=== PATIENT | female | born 1955 | race Caucasian/White ===

== ENCOUNTER 2020-09-27 21:02 | Emergency (ER) | payer BC, SELFPAY ==
[2020-09-27 21:03] VITALS: BP 151/65; PULSE 76; RESP 18; TEMP 36.9; O2SAT 95; BMI 57.6
--- NOTE | 2020-09-27 21:20 | RAD_ITS ---
STUDY: X-RAY - LEFT FEMUR REASON FOR STUDY: Female, 64 years old. Fall today. Left femur pain. Best images possible due to pt size. TECHNIQUE: 2 view(s) of the femur. COMPARISON: None. FINDINGS: Comminuted foreshortened fracture distal femur with 100% posterior displacement and 50% medial displacement. Normal visualized soft tissue structure. RAD/Femur Min 2 Views IMPRESSION: Displaced distal femur fracture Electronically Signed: Michael Vargas MD at 21:52 EST , Service support ,
--- NOTE | 2020-09-27 21:22 | ED.DCSUM_ITS ---
- ER Visit Summary Date of Service: 09/27/20 Chief Complaint:-Fell at home complaining of left lower thigh pain History of Present Illness: The patient is a 64 F history of diabetes, hypertension and uterine cancer with prior hysterectomy. Patient states she was at home tripped and fell in the doorway injuring her left thigh just above the knee. Squad was called. She was brought in in an air splint and given morphine in route. Says her pain currently is about 2-3 out of 10. She denies hitting her head or having any LOC. She denies any other complaints. She is never had surgery to this leg. Physical Examination: Older female vital signs stable afebrile. HEENT exam atraumatic. Nontender. Pupils round reactive light. Scalp nontender. C-spine nontender. Trachea midline. Lungs clear to auscultation bilaterally. Heart regular rhythm rate about 75. Chest wall nontender. Abdomen soft nontender morbidly obese. Pelvic girdle intact. Hips nontender. Both upper extremities are nontender with 5-5 digital experience manager strength and normal range of motion. Right lower extremity is nontender. Normal range of motion normal dorsi plantarflexion. Right hip, knee and ankle are nontender. Left hip is nontender. Left foot and ankle are nontender. Dorsi plantarflexion intact left foot. Normal sensation. Normal pulse. Her left femur just above the knee is tender in that area is swollen. Neurologically she is awake and alert. Moving the 3 uninjured extremities. And has dorsi and plantar flexion in the left lower extremity. Test Results: Left femur x-ray 2 views interpreted by myself shows shows a displaced distal femur fracture just above the knee joint. 100% displaced. Also read by the radiologist and agrees. CBC showed a white count of 9 and hemoglobin of 11. Chemistries were unremarkable with normal creatinine and gap. Her blood sugar was 132. Emergency Department Course and Treatment: Patient with a fall concern for a femur fracture. X-rays are being obtained. She was treated with morphine by the paramedics. Treatment Plan: Patient's been treated with additional morphine and Zofran. Currently she is doing well at 10:07 PM. I spoke to the orthopedic physician on-call yessenia he felt that was in the patient's best interest to have this treated at a larger facility. I spoke to [facility] and they have accepted her to be transferred to the emergency department. Disposition: Transfer to [facility]. Impression: Acute fall Acute left distal, comminuted and displaced femur fracture History of diabetes and hypertension This note was generated with [employer] dictation software. It may contain incorrect words, spelling, and punctuation that were not noted in review of the chart prior to signing ED Disposition - Plan for ED Patient: Referrals: Terrence Núñez MD [Primary Care Provider] -
[2020-09-27] MEDS: Ondansetron 4 MG/2 ML Vial IV (21:45)
[2020-09-27] MEDS: morphine 8 MG/ML Syringe IV (21:45)
[2020-09-27 21:54] LABS: Hematocrit 38.5 % (37-47); Hemoglobin 11.2 g/dL (12.0-15.0); Mean Corp Hgb Conc 29.1 g/dL (32-36); Mean Corpuscular Hgb 24.2 pg (27.0-32.0); Mean Corpuscular Volume 83.2 fL (81-99); Mean Platelet Vol. 11.3 fl (6.2-12.0); Platelet Count 307 K/mm3 (150-450); RBC Distribution Width CV 14.3 % (11.6-14.6); Red Blood Count 4.63 M/mm3 (4.2-5.4); White Blood Count 9.4 K/mm3 (4.4-11.0)
[2020-09-27 22:03] VITALS: BP 140/102; PULSE 64; RESP 16; O2SAT 96
[2020-09-27 22:03] LABS: Anion Gap 7 (5-15); BUN 16 mg/dL (7-18); BUN/Creat Ratio 19.2 RATIO (10-20); Calcium,Total 8.8 mg/dL (8.5-10.1); Chloride 106 mmol/L (98-107); Creatinine, Serum 0.83 mg/dL (0.55-1.02); EST Glomerular Filtration Rate 73 mL/min (>60); Est Glom Filt Rate - Afr Amer 89 mL/min (>60); Estimated Creatinine Clearance 55.58 ml/min; Glucose 132 mg/dL (74-106); Sodium Level 141 mmol/L (136-145)
--- NOTE | 2020-09-27 22:31 | ED.RN ---
[facility]
--- NOTE | 2020-09-27 22:55 | ED.RN ---
pt at bedside. denies any complaints
[2020-09-27 23:00] VITALS: O2SAT 80
[2020-09-27 23:03] VITALS: O2SAT 99
[2020-09-27 23:20] VITALS: BP 153/77; PULSE 73; RESP 18; O2SAT 98
[2020-09-27] MEDS: Morphine 4 MG/ML Syringe IV (23:56)
[2020-09-28 00:04] VITALS: BP 144/73; PULSE 71; RESP 18; O2SAT 99
== END 2020-09-28 00:06 | disposition short-term general hospital (02) ==
PROVIDERS: Emergency Provider Emergency Medicine; PCP Family Medicine
DX: S72.402A Unspecified fracture of lower end of left femur, initial encounter for closed fracture (principal); E11.9 Type 2 diabetes mellitus without complications; I10 Essential (primary) hypertension; Z79.84 Long term (current) use of oral hypoglycemic drugs; Z79.899 Other long term (current) drug therapy; W01.0XXA Fall on same level from slipping, tripping and stumbling without subsequent striking against object, initial encounter; Y93.01 Activity, walking, marching and hiking; Y92.008 Other place in unspecified non-institutional (private) residence as the place of occurrence of the external cause; Y99.8 Other external cause status
CPT/HCPCS: 51702; 73552; 80048; 85027; 96374; 96375; 96376; 99285; A4216; J2405

== ENCOUNTER 2021-05-28 07:00 | Outpatient (RCR) | payer BC, SELFPAY ==
--- NOTE | 2021-02-15 08:57 | HP.PTEVAL_ITS ---
Patient's Visit Information GAYLE APPLE is a 65 year old F referred to Physical Therapy by KAHLIL SORTO with a diagnosis of L femur fracture. Date of Evaluation: 02/15/21 Physical Therapist: Juan Chu DPT, OCS, CSCS - Visit Plan Frequency: 3x /Week Duration: 4-6 Weeks Plan: 3x/week for 4-6 week for. 1. patella mobs and AAROM PROm to L knee flexion,. 2. quad strength L and general strength LE. 3. gait training with decreasing AD as safety allows.(WBAT) - Subjective Sep 27 fell tripping on threshold of doorway and landed on L knee and broke femur 2 inches above knee. Transported to [facility] and surgery to put in plate and 10 screws. To [facility] adn was there for 12 days. home and did home therapy. Was [facility] for a while til November and then WBAT. Uses wh walker to get around. Tried cane at home. No AD needed Prior to this. Pain in knee is most of time across L knee and laterally. Worse wehn it rains or weather changes. Pain ranges from 1 to 4/10. Sleep is OK but it can wake her up at night at times. Doing exercises at home including walking with cane, and sink exercises of toe/heel raises, squats, leg marching, knee flexion stretche, kick behind. Lives with who is home much of day. Works at night. Dresses, bathes and bathroom I now. Has step in tub to shower chair. 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 Is full go for 40 hrs per week. Hobbies include: wanting to walk without AD. Likes to go and visit places/hike and is not able to get out much right now on feet. Likes to play with grandkids age 8-26. - Pain L knee Pain Intensity (Out of 10): 1 Pain Intensity Range: 1, 6 - Objective Walks with wh walker Mod I. Trasnfers I bed and chair. Steps with R only and one rail and one cane ascending adn two rails descending. R knee aROM 0-110 with 0 ext lag SLR. L knee 0-70 AROM with 18 degree ext lag with SLR. HS flex is good. Hip and ankle AROM WFL and strength hip 3+ and ankle 4-. knee strength ext L 3, flexion 4-, R knee 4 flexiona dn ext. patella stiff on L in cleopatra direction. reflexes 1/3 patella and achilles B. Sensation LE WNL to gross lgiht touch. Walks with cane CGA with poor confidence in L LE 300 feet today, walks without AD 50 feet slowly and L hesitation in WB and CGA. - Balance Scores Functional Gait Assessment Score: 15 % Disability: 50.0000 - Goals Goal 1:: 0-110 aROM L knee to help facilitate steps Goal Time Frame: 4-6 Weeks Goal 2:: FGA Goal Time Frame: 4-6 Weeks Goal 3:: SLR without ext lag L to show improved strength Goal Time Frame: 4-6 Weeks Goal 4:: Ambulate community without necessitating AD Goal Time Frame: 4-6 Weeks Goal 5:: Up and down steps reciprocally with one rail Goal Time Frame: 4-6 Weeks - Rehabilitation Potential Physical Therapy Diagnosis: L femur fracture and surgery adn resulting mobility deficits. Rehabilitation Potential: Fair - Anticipated Interventions Patient/Client Instruction: Educate patient on: Condition For the Purpose of:: To decrease pain, To increase ROM, To improve muscle performance and motor function, To increase tolerance to activity/condition/position, To improve gait and locomotor functions Therapeutic Exercise to Include: Strength training, Balance training, Gait and locomotor training, Neuromotor development, Passive ROM, Active ROM For the Purpose of:: To decrease pain, To increase ROM, To improve muscle performance and motor function, To increase tolerance to activity/condition/position, To improve gait and locomotor functions, To improve health of tissue Functional Training to Include: ADL Training, Gait training For the Purpose of:: To improve gait and locomotor functions Manual Therapy Techniques to Include: Mobilization, Soft tissue mobilization For the Purpose of:: To increase ROM, To improve nutrient delivery to tissue Cryotherapy (ice pack, ice massage): Yes For the Purpose of:: To decrease pain, To decrease swelling/inflammation Thank you for the opportunity to evaluate your patient. For Medicare and Medicare HMO plans, please review the plan of care and approve it. It will need to be FAXED BACK to us at [phone] for Medicare purposes. For Medicare only, by signing this I certify the plan of care. Please let me know if there are questions or concerns regarding this plan of care. Physician Signature: Date:
--- NOTE | 2021-03-12 08:03 | HP.PTREVAL_ITS ---
KAHLIL SORTO, It has been my pleasure to treat GAYLE APPLE over the last 11 visits for L femur fracture. Please see the progress note below for an update on the physical therapy plan of care! Subjective: Just using cane to get around instead of walker for most of day. Pain is mostly 2/10. Morning is stiff, later in day is sore. Sleep is much better than it was. ROM better but still needs improvement and wants to walk normally without aD. Objective/Function: +9 LEFS from day one. 10 degree lag with SLR(8 degree improvement). 0-78 (8 degree improvement)degrees AROM today, coming along slower than id hoped. Needs VC to put herself in the discomfort it will take to improve this. Hard for her to relax with PROM. Walks with cane R UE slow but mod I, without cane has diminished confidence adn knee gives out one time caught by patient but barely in the shape needed to recover from these types of incidences. steps are reciprocal with two railings required and painful with L knee flexion up and down. Overall SLOW improvement but going the right way. Appropriate to cotninue 3x/week for below POC with fair prognosis. Plan Plan: 3x/week for 3-4 weeks for ... 1. STM, rollout to quads to prepare for ROM. PROM knee flexion. L knee strength. Gait training with decreasing AD> Goals Goal 1:: 0-110 aROM L knee to help facilitate steps Goal Time Frame: 4-6 Weeks Goal Progress: slow progress Goal 2:: FGA Goal Time Frame: 4-6 Weeks Goal Progress: Progressing Goal 3:: SLR without ext lag L to show improved strength Goal Time Frame: 4-6 Weeks Goal Progress: Progressing Goal 4:: Ambulate community without necessitating AD Goal Time Frame: 4-6 Weeks Goal Progress: canenow Goal 5:: Up and down steps reciprocally with one rail Goal Time Frame: 4-6 Weeks Goal Progress: needs two rail Anticipated Interventions Patient/Client Instruction: Educate patient on: Condition For the Purpose of:: To decrease pain, To increase ROM, To improve muscle performance and motor function, To increase tolerance to activity/conditi on/position, To improve gait and locomotor functions Therapeutic Exercise to Include: Strength training, Balance training, Gait and locomotor training, Neuromotor development, Passive ROM, Active ROM For the Purpose of:: To decrease pain, To increase ROM, To improve muscle performance and motor function, To increase tolerance to activity/condition/ position, To improve gait and locomotor functions, To improve health of tissue Functional Training to Include: ADL Training, Gait training For the Purpose of:: To improve gait and locomotor functions Manual Therapy Techniques to Include: Mobilization, Soft tissue mobilization For the Purpose of:: To increase ROM, To improve nutrient delivery to tissue Cryotherapy (ice pack, ice massage): Yes For the Purpose of:: To decrease pain, To decrease swelling/inflammation Please do not hesitate to contact me at [phone] by phone or if you have questions or concerns regarding this new plan of care! Sincerely, Juan Chu, LESLIET, OCS, CSCS
--- NOTE | 2021-04-08 17:57 | HP.PTREVAL ---
KAHLIL SORTO, It has been my pleasure to treat GAYLE APPLE over the last 14 visits for L femur fracture. Please see the progress note below for an update on the physical therapy plan of care! Subjective: I hope we are getting better. Feels tight today above knee laterally. No pain at rest. Uncomfortable with ambuation at times but needs cane due to unsteadiness still. No falls lately. Sleep is OK most of time but achiness keeps her up now and then. Stillw ants to walk without cane and be able to move freely. Is cooking. Can sweep with broom for steadiness. bathroom I. Not using shower chair anymore. Is working adn gets painful sitting too long as the knee will tighten up. To doctor in April. Steps at home are challenging down especially to get out of house. Pt was on vacation for a week a while back. Objective/Function: AROM 0-83 , has a 1 degree ext lag L with SLR. These are improved but arduously slow with flexion ROM. Walking is improved with cane but still short step length and slow. Without cane can ambulate but very slow and short L step length. Steps require puling with both UE and discomfort L descending due to lack of ROM. FGA is +2 from last visit. LEFS is +9 from last visit. Overall fair progress with function, slow progress with ROM and strength Plan Plan: 4 visits approved is not enough to show significant progress and insurance should consider this with next approval. Would like to see her. 3x/week for 4 weeks for... 1. rollout and stretch knee flexion adn patellar mobs. 2. strengthen functionally L LE. 3. Gait training without AD. ice as needed. Goals appropriate and fair prognosis Goals Goal 1:: 0-110 aROM L knee to help facilitate steps Goal Time Frame: 4-6 Weeks Goal Progress: SLOW, approp. Goal 2:: FGA Goal Time Frame: 4-6 Weeks Goal Progress: SLOW, approp Goal 3:: SLR without ext lag L to show improved strength Goal Time Frame: 4-6 Weeks Goal Progress: 1 degree, approp. Goal 4:: Ambulate community without necessitating AD Goal Time Frame: 4-6 Weeks Goal Progress: still requires cane,appro Goal 5:: Up and down steps reciprocally with one rail Goal Time Frame: 4-6 Weeks Goal Progress: needs two rail,a pprop Anticipated Interventions Patient/Client Instruction: Educate patient on: Condition For the Purpose of:: To decrease pain, To increase ROM, To improve muscle performance and motor function, To increase tolerance to activity/condition/position, To improve gait and locomotor functions Therapeutic Exercise to Include: Strength training, Balance training, Gait and locomotor training, Neuromotor development, Passive ROM, Active ROM For the Purpose of:: To decrease pain, To increase ROM, To improve muscle performance and motor function, To increase tolerance to activity/condition/position, To improve gait and locomotor functions, To improve health of tissue Functional Training to Include: ADL Training, Gait training For the Purpose of:: To improve gait and locomotor functions Manual Therapy Techniques to Include: Mobilization, Soft tissue mobilization For the Purpose of:: To increase ROM, To improve nutrient delivery to tissue Cryotherapy (ice pack, ice massage): Yes For the Purpose of:: To decrease pain, To decrease swelling/inflammation Please do not hesitate to contact me at [phone] by phone or if you have questions or concerns regarding this new plan of care! Sincerely, Juan Chu, DPT, OCS, CSCS
--- NOTE | 2021-04-19 12:19 | HP.PT.NRP ---
GAYLE APPLE was seen in my office for initial evaluation on 02/15/21. The following Plan of Care was established for this patient: Initial Frequency: 3x /Week Initial Duration: 4-6 Weeks Patient/Client Instruction: Educate patient on: Condition For the Purpose of:: To decrease pain, To increase ROM, To improve muscle performance and motor function, To increase tolerance to activity/condition/position, To improve gait and locomotor functions Therapeutic Exercise to Include: Strength training, Balance training, Gait and locomotor training, Neuromotor development, Passive ROM, Active ROM For the Purpose of:: To decrease pain, To increase ROM, To improve muscle performance and motor function, To increase tolerance to activity/condition/position, To improve gait and locomotor functions, To improve health of tissue Functional Training to Include: ADL Training, Gait training For the Purpose of:: To improve gait and locomotor functions Manual Therapy Techniques to Include: Mobilization, Soft tissue mobilization For the Purpose of:: To increase ROM, To improve nutrient delivery to tissue Cryotherapy (ice pack, ice massage): Yes For the Purpose of:: To decrease pain, To decrease swelling/inflammation This patient was last seen in our office 04/08/21. Pertinent comments regarding their Physical therapy will appear below: Pt seen 14 visits and was 70% better. More visits were requested but denied by insurance , pt was notified and will be discontinued at this time. At this point I will be discontinuing this patient from physical therapy. I would be happy to see this patient again in the future if found appropriate by the physician. Thank you! Juan Chu, DPT, OCS, CSCS Balance/Gait/Functional tests - Balance/Special Test Scores Functional Gait Assessment Score: 17 % Disability: 43.3400
--- NOTE | 2021-05-28 07:49 | HP.PTREVAL ---
KAHLIL SORTO, It has been my pleasure to treat GAYLE APPLE over the last 25 visits for L femur fracture. Please see the progress note below for an update on the physical therapy plan of care! Subjective: No pain this morning but feels stiff most of time. Progress is slow but steady. Doctor said it may never feel the same again. Not back to doctor until August but bone is healed but it damaged tendon and muscle. Pain is 1/10 most days and described as more of an unusual feeling then pain, sensitive. Sleep is OK. Using cane to get around but at home will go short ditances without it, no falls and feels like balance is good. No steps to do at home.Has outdoor steps but has not done them. Is back at work and no steps there. Has steps at [employer] and mom's house and uses both legs and goes slow. Work is pretty normal. Doing all the basics at home. Does some stretching and sink exercises. Walking longer distances is still challenging in that it starts to get painful with 45 minutes or greater at the grocery store. Feels like she wants to try at home now for exercises. Objective/Function: FGA is +4 from last recheck. Pain is improving slowly. Gait is I with adn without cane but has wide FELIPE which causes some swaying. Can correct with VC but back to wide FELIPE with balacne challenges. 0-100 AROM L knee, 1 degree ext lag with SLR. Step reciprocal up and down requiring two railings and some pulling when using L leg to ascend. Overall doing very well and progressing slowly. Wishes to try exercises at home on her own and appropriate at this point. Recommend checking back in one month to ensure progress. Plan Plan: Pt to do HEP 5x/week and plan to f/u in one month to ensure continued progress I and then d/c if doing well. Pt to call prior if going the wrong way. Goal is to maintain improvments and fair prognosis. Balance/Gait/Functional tests - Balance/Special Test Scores Functional Gait Assessment Score: 23 % Disability: 23.3400 Lower Extremity Functional Score: 57 Goals Goal 1:: 0-110 aROM L knee to help facilitate steps Goal Time Frame: 4-6 Weeks Goal Progress: Not Progressing Goal 2:: FGA Goal Time Frame: 4-6 Weeks Goal Progress: Goal Met Goal 3:: SLR without ext lag L to show improved strength Goal Time Frame: 4-6 Weeks Goal Progress: 1 degree,not progressing Goal 4:: Ambulate community without necessitating AD Goal Time Frame: 4-6 Weeks Goal Progress: cane community, nil home Goal 5:: Up and down steps reciprocally with one rail Goal Time Frame: 4-6 Weeks Goal Progress: Not Progressing Goal 6:: Maintain continued improvements with just her HEP Goal Time Frame: 4-6 Weeks Goal Progress: NEW GOAL Anticipated Interventions Patient/Client Instruction: Educate patient on: Condition For the Purpose of:: To decrease pain, To increase ROM, To improve muscle performance and motor function, To increase tolerance to activity/condition/position, To improve gait and locomotor functions Therapeutic Exercise to Include: Strength training, Balance training, Gait and locomotor training, Neuromotor development, Passive ROM, Active ROM For the Purpose of:: To decrease pain, To increase ROM, To improve muscle performance and motor function, To increase tolerance to activity/condition/position, To improve gait and locomotor functions, To improve health of tissue Functional Training to Include: ADL Training, Gait training For the Purpose of:: To improve gait and locomotor functions Manual Therapy Techniques to Include: Mobilization, Soft tissue mobilization For the Purpose of:: To increase ROM, To improve nutrient delivery to tissue Cryotherapy (ice pack, ice massage): Yes For the Purpose of:: To decrease pain, To decrease swelling/inflammation Please do not hesitate to contact me at [phone] by phone or if you have questions or concerns regarding this new plan of care! Sincerely, Juan Chu, DPT, OCS, CSCS
--- NOTE | 2021-06-15 09:41 | HP.PT.NRP ---
GAYLE APPLE was seen in my office for initial evaluation on 02/15/21. The following Plan of Care was established for this patient: Initial Frequency: 3x /Week Initial Duration: 4-6 Weeks Patient/Client Instruction: Educate patient on: Condition For the Purpose of:: To decrease pain, To increase ROM, To improve muscle performance and motor function, To increase tolerance to activity/condition/position, To improve gait and locomotor functions Therapeutic Exercise to Include: Strength training, Balance training, Gait and locomotor training, Neuromotor development, Passive ROM, Active ROM For the Purpose of:: To decrease pain, To increase ROM, To improve muscle performance and motor function, To increase tolerance to activity/condition/position, To improve gait and locomotor functions, To improve health of tissue Functional Training to Include: ADL Training, Gait training For the Purpose of:: To improve gait and locomotor functions Manual Therapy Techniques to Include: Mobilization, Soft tissue mobilization For the Purpose of:: To increase ROM, To improve nutrient delivery to tissue Cryotherapy (ice pack, ice massage): Yes For the Purpose of:: To decrease pain, To decrease swelling/inflammation This patient was last seen in our office 05/28/21. Pertinent comments regarding their Physical therapy will appear below: Pt seen 25 visits of POC and was 85% better and ready to do HEP at home on her own. I had requested to f/u in am month to ensure progress but inusrance has denied that visit and per discussion with patient, will discontinue at this time. At this point I will be discontinuing this patient from physical therapy. I would be happy to see this patient again in the future if found appropriate by the physician. Thank you! Juan Chu, DPT, OCS, CSCS Balance/Gait/Functional tests - Balance/Special Test Scores Functional Gait Assessment Score: 23 % Disability: 23.3400 Lower Extremity Functional Score: 57
== END 2021-05-28 19:00 | disposition home or self-care (01) ==
LOC: PT 07:00
PROVIDERS: PCP Family Medicine
DX: S72.402D Unspecified fracture of lower end of left femur, subsequent encounter for closed fracture with routine healing (principal); X58.XXXD Exposure to other specified factors, subsequent encounter
CPT/HCPCS: 97110; 97162; 97164; 97530

== ENCOUNTER → 2024-04-11 | Outpatient (CLI) | payer OTHER, SELFPAY ==
[2024-04-11 11:17] LABS: Anion Gap 8 (5-15); BUN 23 mg/dL (7-18); BUN/Creat Ratio 20.4 RATIO (10-20); Calcium,Total 9.3 mg/dL (8.5-10.1); Chloride 106 mmol/L (98-107); Cholesterol 127 mg/dL (200); Creatinine, Serum 1.13 mg/dL (0.55-1.02); EST Glomerular Filtration Rate 51 mL/min (>60); Est Glom Filt Rate - Afr Amer 62 mL/min (>60); Glucose 135 mg/dL (74-106); High Density Lipoprotein 61 mg/dL; Potassium 4.1 mmol/L (3.5-5.1); Sodium Level 138 mmol/L (136-145); Thyroid Stim Hormone (TSH) 2.73 uIU/mL (0.358-3.74); Triglycerides 96 mg/dL; Very Low Density Lipoprotein 19 mg/dL (5-40)
[2024-04-11 16:30] LABS: Hemoglobin A1c 6.5 % (3.8-5.6)
== END | disposition home or self-care (01) ==
LOC: MFPLAB 08:45
PROVIDERS: PCP Family Medicine; Visit Provider Family Medicine
DX: Z00.00 Encounter for general adult medical examination without abnormal findings (principal); E11.9 Type 2 diabetes mellitus without complications
CPT/HCPCS: 36415; 80048; 80061; 83036; 84443

== ENCOUNTER → 2024-12-16 | Outpatient (CLI) | payer OTHER, SELFPAY ==
[2024-12-16 15:51] LABS: Microalbumin,Random Urine < 12.0 mg/L (NO RANGE EST.); Microalbumin:Creatinine Ratio UNABLE TO CALCULATE mg/g CRE
[2024-12-16 23:32] LABS: Cholesterol 128 mg/dL (<=200); High Density Lipoprotein 67 mg/dL; Low Density Lipoprotein Calc. 47 mg/dL; Triglycerides 70 mg/dL; Very Low Density Lipoprotein 14 mg/dL (5-40); cholesterol:hdl ratio screen 1.92
[2024-12-16 23:42] LABS: ALB/GLOB Ratio 1.7 RATIO (0.9-2.4); AST(SGOT) 17 U/L (<=31); Alanine Aminotransfer ALT/SGPT 13 U/L (<=34); Alkaline Phosphatase 59 U/L (35-104); Anion Gap 14 (5-15); BUN 18 mg/dL (4-19); BUN/Creat Ratio 18.3 RATIO (10-20); Calcium,Total 9.2 mg/dL (7.6-11.0); Carbon Dioxide 23.4 mmol/L (21.0-32.0); Chloride 106 mmol/L (98-108); Creatinine, Serum 0.98 mg/dL (0.70-1.20); EST Glomerular Filtration Rate 64 (>60); Globulin 2.4 g/dL (2.2-4.2); Glucose 111 mg/dL (70-99); Potassium 4.2 mmol/L (3.3-5.1); Protein, Total 6.4 g/dL (5.9-8.4); Sodium Level 143 mmol/L (133-145); Total Bilirubin 0.42 mg/dL (0.00-1.30)
== END | disposition home or self-care (01) ==
LOC: MFPLAB 09:28
PROVIDERS: PCP Family Medicine; Referring Provider Family Medicine; Visit Provider Family Medicine
DX: E11.9 Type 2 diabetes mellitus without complications (principal)
CPT/HCPCS: 36415; 80053; 80061; 82043; 82570

== ENCOUNTER 2025-02-01 13:42 | Emergency (ER) | payer OTHER, SELFPAY ==
[2025-02-01 13:42] VITALS: BP 132/69; PULSE 76; RESP 14; TEMP 36.7; O2SAT 98; BMI 47.2
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
[2025-02-01] MEDS: Lidocaine 1% (20 ml mdv) 20 ML Vial INFILT (14:04)
[2025-02-01] MEDS: Diphth,Pertuss(Acell),Tet Vac 0.5 ML Vial IM (14:04)
[2025-02-01 15:22] VITALS: BP 132/78; PULSE 78; RESP 12; TEMP -7.7; TEMP 18; O2SAT 99
== END 2025-02-01 15:23 | disposition home or self-care (01) ==
PROVIDERS: Emergency Provider Emergency Medicine; PCP Family Medicine; Visit Provider Emergency Medicine
DX: S81.812A Laceration without foreign body, left lower leg, initial encounter (principal); E11.9 Type 2 diabetes mellitus without complications; I10 Essential (primary) hypertension; S00.83XA Contusion of other part of head, initial encounter; W18.09XA Striking against other object with subsequent fall, initial encounter; Z23 Encounter for immunization
CPT/HCPCS: 12002; 90471; 90715; 99285

== ENCOUNTER → 2025-06-16 | Outpatient (CLI) | payer OTHER, SELFPAY ==
[2025-06-16 11:00] LABS: AST(SGOT) 18 U/L (<=31); Alanine Aminotransfer ALT/SGPT 13 U/L (<=34); Albumin, Serum 3.8 g/dL (3.4-4.8); Alkaline Phosphatase 67 U/L (35-104); Anion Gap 11 (5-15); BUN 18 mg/dL (4-19); BUN/Creat Ratio 17.4 RATIO (10-20); Calcium,Total 9.4 mg/dL (7.6-11.0); Carbon Dioxide 26.0 mmol/L (21.0-32.0); Chloride 104 mmol/L (98-108); Cholesterol 132 mg/dL (<=200); Globulin 2.3 g/dL (2.2-4.2); Glucose 133 mg/dL (70-99); Low Density Lipoprotein Calc. 42 mg/dL; Potassium 4.3 mmol/L (3.3-5.1); Triglycerides 70 mg/dL; Very Low Density Lipoprotein 14 mg/dL (5-40); cholesterol:hdl ratio screen 1.73
== END | disposition home or self-care (01) ==
LOC: MFPLAB 08:57
PROVIDERS: PCP Family Medicine; Visit Provider Family Medicine
DX: E11.9 Type 2 diabetes mellitus without complications (principal)
CPT/HCPCS: 36415; 80053; 80061